=== PATIENT | male | born 1990 | race Caucasian/White ===

== ENCOUNTER 2021-02-02 03:34 | Observation (INO) | payer OTHER ==
[2021-02-02] VITALS (10 sets, daily range): BP systolic 112–133; BP diastolic 53–65; PULSE 57–83; TEMP 98–98.2
[~2021-02-02] VITALS: Wt 98.6 kg
--- NOTE | 2021-02-02 05:55 | NUR ---
ADMITTED TO ROOM 353. A&OX4. DENIES PAIN AT THIS TIME. ORIENTED TO ROOM.
--- NOTE | 2021-02-02 06:09 | NUR ---
NO BLEEDING NOTED. NO EXCESSIVBE SWALLOWING.
--- NOTE | 2021-02-02 06:23 | NUR ---
PT RESTING COMFORTABLY. NO DISTRESS.
--- NOTE | 2021-02-02 06:24 | NUR ---
IV CAPPED. TAKING PO FLUIDS WELL.
--- NOTE | 2021-02-02 07:31 | NUR ---
Pt assessment complete. Pt is sleeping in bed upon entry, he arouses to voice. Currently reports throat pain 3/10, scheduled Tylenol administered. Pt not interested in eating at this time. Tolerating sips of water. No bleeding visualized to throat. No needs at this time. Call light within reach.
--- NOTE | 2021-02-02 13:02 | NUR ---
Discharge paperwork and instructions reviewed with patient, all questions answered at this time. IV to LAC dc'd catheter tip intact. Pt wheeled out of facility at this time by staff member.
== END 2021-02-02 13:05 | disposition home or self-care (01) ==
LOC: COL.ER 03:34 → MEDICAL 04:32
PROVIDERS: ADMIT Otolaryngology
DX: J95.830 Postprocedural hemorrhage of a respiratory system organ or structure following a respiratory system procedure (principal)
CPT/HCPCS: J0330; J1100; J2405; J2704; J3010